=== PATIENT | male | born 1935 | race African-American/Black ===

== ENCOUNTER → 2016-11-08 | Outpatient (CLI) | payer MEDICARE, BC | END | disposition home or self-care (01) | LOC: CFH 14:54 | PROVIDERS: ATTEND Internal Medicine Pulmonary Disease | DX: J47.9 Bronchiectasis, uncomplicated (principal); M85.89 Other specified disorders of bone density and structure, multiple sites; M47.899 Other spondylosis, site unspecified; M19.011 Primary osteoarthritis, right shoulder; Z77.090 Contact with and (suspected) exposure to asbestos | CPT/HCPCS: 71250 ==

== ENCOUNTER → 2017-08-29 | Outpatient (CLI) | payer MEDICARE, BC | END | disposition home or self-care (01) | LOC: CVU 15:06 | PROVIDERS: ATTEND Nurse Practitioner | DX: I08.2 Rheumatic disorders of both aortic and tricuspid valves (principal); I10 Essential (primary) hypertension | CPT/HCPCS: 93306 ==